=== PATIENT | male | born 1990 | race Caucasian/White ===

== ENCOUNTER 2024-08-10 22:53 | Emergency (ER) | payer OTHER ==
[2024-08-10 23:01] VITALS: RESP 18
--- NOTE | 2024-08-10 23:37 | ED ---
General Adult HPI - General Source: patient, RN notes reviewed Mode of arrival: ambulatory Limitations: no limitations <Gwendolyn Abbott - Last Filed: 08/10/24 23:40> - General Source: patient, RN notes reviewed, old records reviewed Mode of arrival: ambulatory Limitations: no limitations - History of Present Illness -: hour(s) Location: back, pelvis Radiation: non-radiation Severity scale (1-10): 7 Quality: sharp Consistency: constant Improves with: none Worsens with: none Associated Symptoms: denies other symptoms Treatments Prior to Arrival: none <Brooks Busby - Last Filed: 08/11/24 04:13> - General Chief complaint: Back Pain/Injury Stated complaint: Fall- back injury Time Seen by Provider: 08/10/24 23:00 - History of Present Illness Initial comments: Quick [id number] male presenting to the emergency department after an accidental fall from a height of 6 feet from a ladder. Patient states that he fell onto the right lower part of his back/hip. Patient is able to ambulate however states that this causes pain. Patient denies radiation of pain. Denies loss of bladder or bowel control or saddle anesthesias. (Gwendolyn Abbott) This is a 34-year-old male after a fall 6 feet from a ladder landing on his right hip and back severe pain in the back unable to sit comfortably ( Brooks Busby) - Related Data Previous Rx's Medication Instructions Recorded Ketorolac [Toradol] 10 mg PO Q6HR #20 tab 08/11/24 Allergies Allergy/AdvReac Type Severity Reaction Status Date / Time No Known Allergies Allergy Verified 08/10/24 23:01 Review of Systems ROS Other: All systems not noted in ROS Statement are negative. <Gwendolyn Abbott - Last Filed: 08/10/24 23:40> ROS Other: All systems not noted in ROS Statement are negative. <Brooks Busby - Last Filed: 08/11/24 04:13> ROS Statement: Those systems with pertinent positive or pertinent negative responses have been documented in the HPI. Past Medical History Past Medical History: No Reported History History of Any Multi-Drug Resistant Organisms: None Reported Past Surgical History: No Surgical Hx Reported Past Psychological History: No Psychological Hx Reported Smoking Status: Never smoker Past Alcohol Use History: None Reported Past Drug Use History: None Reported <Isaura Abbottoe - Last Filed: 08/10/24 23:40> General Exam Limitations: no limitations <Isaura Abbottoe - Last Filed: 08/10/24 23:40> General appearance: alert, in no apparent distress Head exam: Present: atraumatic, normocephalic, normal inspection Eye exam: Present: normal appearance, PERRL, EOMI. Absent: scleral icterus, conjunctival injection, periorbital swelling ENT exam: Present: normal exam, mucous membranes moist Neck exam: Present: normal inspection. Absent: tenderness, meningismus, lymphadenopathy Respiratory exam: Present: normal lung sounds bilaterally. Absent: respiratory distress, wheezes, rales, rhonchi, stridor Cardiovascular Exam: Present: regular rate, normal rhythm, normal heart sounds. Absent: systolic murmur, diastolic murmur, rubs, gallop, clicks GI/Abdominal exam: Present: soft, normal bowel sounds. Absent: distended, tenderness, guarding, rebound, rigid Extremities exam: Present: normal inspection, full ROM, normal capillary refill. Absent: tenderness, pedal edema, joint swelling, calf tenderness Back exam: Present: normal inspection Neurological exam: Present: alert, oriented X3, CN II-XII intact Psychiatric exam: Present: normal affect, normal mood Skin exam: Present: warm, dry, intact, normal color. Absent: rash <Brooks Busby - Last Filed: 08/11/24 04:13> - General Exam Comments Initial Comments: Visual Physical Exam Vital signs reviewed General: Well-appearing, nontoxic, no acute distress. Head: Normocephalic, atraumatic Eyes: PERRLA, EOMI ENT: Airway patent Chest: Nonlabored breathing Skin: No visual rash, normal skin tone Neuro: Alert and oriented 3 Musculoskeletal: No gross abnormalities (Stieler,Gwendolyn) Course <Brooks Busby - Last Filed: 08/11/24 04:13> Vital Signs 08/10/24 08/11/24 22:59 01:40 Temperature 98.8 F 97.8 F Pulse Rate 82 79 Respiratory 18 18 Rate Blood Pressure 145/91 140/87 O2 Sat by Pulse 96 97 Oximetry - Reevaluation(s) Reevaluation #1: 08/11/24 04:12 Medical records reviewed (Brooks Busby) Reevaluation #2: 08/11/24 04:12 Patient's symptoms improved (Brooks Busby) Reevaluation #3: 08/11/24 04:12 Patient informed of results questions answered (Brooks Busby) Reevaluation #4: Was pt. sent in by a medical professional or institution ([facility]cedo, [employer], urgent care, hospital, or snf...) When possible be specific @ -no Did you speak to anyone other than the patient for history (EMS, parent, family, police, friend...)? What history was obtained from this source @ -no Did you review nursing and triage notes (agree or disagree)? Why? @ -agree Are old charts reviewed (outside hosp., previous admission, EMS record, old EKG, old radiological studies, urgent care reports/EKG's, snf records)? Report findings @ -yes Differential Diagnosis (chest pain, altered mental status, abdominal pain women, abdominal pain men, vaginal bleeding, weakness, fever, dyspnea, syncope, headache, dizziness, GI bleed, back pain, seizure, CVA, palpatations, mental health, musculoskeletal)? @ -prior EKG interpreted by me (3pts min.). @ -yes X-rays interpreted by me (1pt min.). @ -yes negative for acute disease CT interpreted by me (1pt min.). @ -no U/S interpreted by me (1pt. min.). @ -no What testing was considered but not performed or refused? (CT, X-rays, U/S, labs)? Why? @ -none What meds were considered but not given or refused? Why? @ -none Did you discuss the management of the patient with other professionals (professionals i.e. [facility] Salcedo, [employer], lab, RT, psych nurse, social worker assistant, white washer, teacher, postal delivery officer, watch case polisher)? Give summary @ -no Was smoking cessation discussed for >3mins.? @ -no Was critical care preformed (if so, how long)? @ -no Were there social determinants of health that impacted care today? How? (Homelessness, low income, unemployed, alcoholism, drug addiction, transportation, low edu. Level, literacy, decrease access to med. care, longterm, rehab)? @ -none Was there de-escalation of care discussed even if they declined (Discuss DNR or withdrawal of care, Hospice)? DNR status @ -no What co-morbidities impacted this encounter? (DM, HTN, Smoking, COPD, CAD, Cancer, CVA, ARF, Chemo, Hep., AIDS, mental health diagnosis, sleep apnea, morbid obesity)? @ -none Was patient admitted / discharged? Hospital course, mention meds given and route, prescriptions, significant lab abnormalities, going to OR and other pertinent info. @ - Undiagnosed new problem with uncertain prognosis? @ -no Drug Therapy requiring intensive monitoring for toxicity (Heparin, Nitro, Insulin, Cardizem)? @ -no Were any procedures done? @ -no Diagnosis/symptom? @ - Acute, or Chronic, or Acute on Chronic? @ -Acute Uncomplicated (without systemic symptoms) or Complicated (systemic symptoms)? @ -Complicated Side effects of treatment? @ -no Exacerbation, Progression, or Severe Exacerbation? @ -exacerbation Poses a threat to life or bodily function? How? (Chest pain, [place], [place], pneumonia, PE, COPD, DKA, ARF, appy, cholecystitis, CVA, Diverticulitis, Homicidal, Suicidal, threat to staff... and all critical care pts) @ -yes (Brooks Busby) Reevaluation #5: Differential Back Pain: Strain, zoster, cauda equina syndrome, epidural abscess, vertebral osteomyelitis, discitis, fracture, subluxation, disc herniation, DJD, spinal stenosis, dissection, AAA, pancreatitis, peptic ulcer disease, pyelonephritis, kidney stone, this is not meant to be an all-inclusive list. (Brooks Busby) Medical Decision Making <Gwendolyn Abbott - Last Filed: 08/10/24 23:40> - Radiology Data Radiology results: report reviewed (X-ray LS spine pelvis and hip are negative for acute traumatic injury), image reviewed <Brooks Busby - Last Filed: 08/11/24 04:13> - Medical Decision Making I completed the quick note portion of this chart signed Gwendolyn Abbott PA-C (Gwendolyn Abbott) 34 male with severe back pain here in the ER after a fall. Contusion no traumatic injury noted on x-ray patient can be discharged home (Brooks Busby) Disposition <Gwendolyn Abbott - Last Filed: 08/10/24 23:40> Is patient prescribed a controlled substance at d/c from ED?: No Time of Disposition: 01:00 <Brooks Busby - Last Filed: 08/11/24 04:13> Clinical Impression: Thoracic back pain, Mid back pain Disposition: HOME SELF-CARE Condition: Good Instructions (If sedation given, give patient instructions): Acute Low Back Pain (ED) Prescriptions: Ketorolac [Toradol] 10 mg PO Q6HR #20 tab Referrals: None,Stated [Primary Care Provider] - 1-2 days
[2024-08-11] MEDS: KETOROLAC 15 MG/ML 1 ML VIAL IM STA (00:36)
[2024-08-11] MEDS: traMADol 50 MG TAB PO STA (00:37)
[2024-08-11] MEDS: traMADol 50 MG STARTER PACK 3 TAB BTL PO STA (01:31)
[2024-08-11 01:41] VITALS: BP 140/87; PULSE 79; TEMP 97.8
--- NOTE | 2024-08-11 02:48 | XR ---
EXAM: XR Pelvis Complete, 3 or More Views CLINICAL HISTORY: ITS.REASON XR Reason: fall, pain TECHNIQUE: Frontal and lateral or oblique views of the pelvis. COMPARISON: No relevant prior studies available. FINDINGS: Bones/joints: No acute fracture. No dislocation. Soft tissues: Unremarkable. IMPRESSION: No acute findings.
--- NOTE | 2024-08-11 03:05 | XR ---
EXAM: XR Lumbosacral Spine, 2 or 3 Views CLINICAL HISTORY: ITS.REASON XR Reason: pain TECHNIQUE: Frontal and lateral views of the lumbar spine and sacrum. COMPARISON: No relevant prior studies available. FINDINGS: Vertebrae: No acute fracture. Dextroscoliosis. Disc spaces: No significant narrowing. Soft tissues: Unremarkable. IMPRESSION: No acute findings.
--- NOTE | 2024-08-11 03:05 | XR ---
EXAM: XR Sacrum and Coccyx, 2 or more Views CLINICAL HISTORY: ITS.REASON XR Reason: pain TECHNIQUE: Frontal and lateral views of the sacrum and coccyx. COMPARISON: No relevant prior studies available. FINDINGS: Sacrum/coccyx: Unremarkable. No acute fracture. Vertebrae: No acute fracture. Normal sagittal alignment. Soft tissues: Unremarkable. IMPRESSION: No acute osseous abnormalities.
== END 2024-08-11 01:41 | disposition home or self-care (01) ==
LOC: EC 22:53
DX: M54.6 Pain in thoracic spine (principal); W11.XXXA Fall on and from ladder, initial encounter
CPT/HCPCS: 72100; 72220; 73502; 96372; 99283